=== PATIENT | male | born 1955 | race American Indian/Alaskan Native ===

== ENCOUNTER 2017-11-08 21:21 | Emergency (ER) | payer BC ==
[2017-11-08 22:40] VITALS: RESP 17; O2SAT 96
--- NOTE | 2017-11-08 23:31 | ED PDOC ---
Arrival/HPI - General Chief Complaint: Back Pain Time Seen by Provider: 11/08/17 23:28 Historian: Patient - History of Present Illness Narrative History of Present Illness (Text): 11/08/17 23:31 Shorty Sandhu is a 62 year old male, whose past medical history includes hypertension, who presents to the Emergency department complaining of right- sided neck pain since this morning. Patient states he regularly wears a CPAP mask to sleep for sleep apnea and states he may have "slept wrong." Patient now complaining of right-sided neck pain/muscle spasms.No hx. of any trauma. Patient denies any back pain, headache, dizziness, weakness/numbness/tingling in the extremities, or any other complaints Time/Duration: Other (this morning) Symptom Onset: Gradual Symptom Course: Unchanged Activities at Onset: Sleeping Context: Home Past Medical History - Provider Review Nursing Documentation Reviewed: Yes - Infectious Disease Hx of Infectious Diseases: None - Cardiac Hx Cardiac Disorders: Yes Hx Hypertension: Yes - Pulmonary Hx Respiratory Disorders: No - Neurological Hx Neurological Disorder: No - HEENT Hx HEENT Disorder: No - Renal Hx Renal Disorder: No - Endocrine/Metabolic Hx Endocrine Disorders: No - Hematological/Oncological Hx Blood Disorders: No - Integumentary Hx Dermatological Disorder: No - Musculoskeletal/Rheumatological Hx Musculoskeletal Disorders: Yes Other/Comment: B/L Knee replacements - Gastrointestinal Hx Gastrointestinal Disorders: No - Genitourinary/Gynecological Hx Genitourinary Disorders: No - Psychiatric Hx Psychophysiologic Disorder: No Hx Substance Use: No - Surgical History Hx Joint Replacement: Yes - Anesthesia Hx Anesthesia: Yes Hx Anesthesia Reactions: No Hx Malignant Hyperthermia: No - Suicidal Assessment Feels Threatened In Home Enviroment: No Family/Social History - Physician Review Nursing Documentation Reviewed: Yes Family/Social History: Unknown Family HX Smoking Status: Never Smoked Hx Alcohol Use: No Hx Substance Use: No Allergies/Home Meds Allergies/Adverse Reactions: Allergies No Known Allergies Allergy (Verified 11/08/17 22:39) Home Medications: Home Meds Medication Instructions Recorded Confirmed Norvasc 10 mg PO DAILY 01/10/14 11/08/17 Gabapentin [Neurontin] 300 mg PO BID 11/08/17 11/08/17 Valsartan [Diovan] 320 mg PO DAILY 11/08/17 11/08/17 hydrALAZINE [hydralazine 25 mg PO TID 11/08/17 11/08/17 Hydrochloride] Review of Systems - Physician Review All systems were reviewed & negative as marked: Yes - Review of Systems Constitutional: Normal. absent: Fevers Eyes: Normal ENT: Normal Respiratory: Normal. absent: SOB, Cough Cardiovascular: Normal. absent: Chest Pain Gastrointestinal: Normal. absent: Abdominal Pain, Diarrhea, Nausea, Vomiting Genitourinary Male: Normal. absent: Dysuria, Frequency, Hematuria, Urinary Output Changes Musculoskeletal: Neck Pain. absent: Back Pain Skin: Normal. absent: Rash Neurological: Normal. absent: Headache, Dizziness Endocrine: Normal Hemo/Lymphatic: Normal Psychiatric: Normal Physical Exam Vital Signs Reviewed: Yes Vital Signs Temp Pulse Resp BP Pulse Ox 11/08/17 22:34 98.7 F 59 L 17 197/99 H 96 Temperature: Afebrile Blood Pressure: Hypertensive Pulse: Regular Respiratory Rate: Normal Appearance: Positive for: Well-Appearing, Non-Toxic, Comfortable Pain Distress: None Mental Status: Positive for: Alert and Oriented X 3 - Systems Exam Head: Present: Atraumatic, Normocephalic Pupils: Present: PERRL Extroacular Muscles: Present: EOMI Conjunctiva: Present: Normal Mouth: Present: Moist Mucous Membranes Neck: Present: Paraspinal Tenderness (Paracervical muscle spasms and tenderness on right side). No: Meningeal Signs, MIDLINE TENDERNESS Respiratory/Chest: Present: Clear to Auscultation, Good Air Exchange. No: Respiratory Distress, Accessory Muscle Use Cardiovascular: Present: Regular Rate and Rhythm, Normal S1, S2. No: Murmurs Abdomen: Present: Normal Bowel Sounds. No: Tenderness, Distention, Peritoneal Signs Back: Present: Normal Inspection. No: CVA Tenderness, Midline Tenderness, Paraspinal Tenderness Upper Extremity: Present: Normal Inspection. No: Cyanosis, Edema Lower Extremity: Present: Normal Inspection. No: Edema Neurological: Present: GCS=15, CN II-XII Intact, Speech Normal, Motor Func Grossly Intact, Normal Sensory Function, Normal Cerebellar Funct, Gait Normal, Memory Normal Skin: Present: Warm, Dry, Normal Color. No: Rashes Psychiatric: Present: Alert, Oriented x 3, Normal Insight, Normal Concentration Medical Decision Making ED Course and Treatment: 11/08/17 23:31 Impression: 62 year old male complaining of right-sided neck pain. Differential Diagnosis included but are not limited to: muscle spasm vs. torticollis Plan: -- Percocet -- Valium -- Reassess and disposition Progress Notes: 11/09/17 01:30 On re-evaluation, patient feels better and is in no acute distress. I have discussed the results and plan with the patient, who expresses understanding. Patient in agreement with plan to be discharged home. Patient is stable for discharge. Patient was instructed to follow up with physician or return if symptoms worsen or new concerning symptoms arise. - Medication Orders Current Medication Orders: Discontinued Medications Diazepam (Valium) 5 mg PO ONCE ONE PRN Reason: Protocol Stop: 11/08/17 23:33 Last Admin: 11/08/17 23:59 Dose: 5 mg Diazepam (Valium) 5 mg PO ONCE ONE Stop: 11/09/17 01:32 Oxycodone/Acetaminophen (Percocet 5/325 Mg Tab) 1 tab PO STAT STA Stop: 11/08/17 23:33 Last Admin: 11/08/17 23:59 Dose: 1 tab MAR Pain Assessment Document 11/08/17 23:59 [facility] (Rec: 11/09/17 00:00 R [id number]) Pain Reassessment Is this a pain reassessment? No Sleep Is patient sleeping during reassessment? No Presence of Pain Presence of Pain Yes Pain Scale Used Pain Scale Used Numeric Location Pain Location Body Site Neck Description Description Sharp Intensity of Pain at present 10 Acceptable Level of Pain 0 Pain Behavior Moaning Restlessness Aggravating Factors ADL's Alleviating Factors no relief Oxycodone/Acetaminophen (Percocet 5/325 Mg Tab) 1 tab PO STAT STA Stop: 11/09/17 01:32 - Scribe Statement The provider has reviewed the documentation as recorded by the Moe Madrigal Provider Scribe Attestation: All medical record entries made by the Scribanne were at my direction and personally dictated by me. I have reviewed the chart and agree that the record accurately reflects my personal performance of the history, physical exam, medical decision making, and the department course for this patient. I have also personally directed, reviewed, and agree with the discharge instructions and disposition. Disposition/Present on Arrival - Present on Arrival Any Indicators Present on Arrival: No History of DVT/PE: No History of Uncontrolled Diabetes: No Urinary Catheter: No History of Decub. Ulcer: No History Surgical Site Infection Following: Orthopedic Procedures - Disposition Have Diagnosis and Disposition been Completed?: Yes Diagnosis: Cervical muscle strain, Cervical paraspinal muscle spasm Disposition: HOME/ ROUTINE Disposition Time: :33 Patient Plan: Discharge Patient Problems: Current Active Problems Problem Status Onset Cervical muscle strain Acute Cervical paraspinal muscle spasm Acute Condition: GOOD Discharge Instructions (ExitCare): Cervical Strain (DC), Muscle Spasm (ED) Additional Instructions: Apply warm compresses to the affected area/take meds as prescribed/follow up with your doctor this week Prescriptions: oxyCODONE/Acetaminophen [Percocet 5/325 mg Tab] 1 ea PO Q6 PRN #16 tab PRN Reason: Pain, Moderate (4-7) diaZEpam [Valium] 5 mg PO QID PRN #16 tab PRN Reason: Muscle Spasm Referrals: Carrie Ortega MD [Primary Care Provider] - Follow up with primary Forms: [employer] (Honduran)
[2017-11-08] MEDS ORDERED: Oxycodone/Acetaminophen 5/325 mg Tab PO STA (23:32)
[2017-11-09] MEDS ORDERED: Oxycodone/Acetaminophen 5/325 mg Tab PO STA (01:31)
[2017-11-09 02:09] VITALS: BP 134/71; PULSE 78; TEMP 98.3
== END 2017-11-09 02:10 | disposition home or self-care (01) ==
LOC: ED 21:21
DX: S16.1XXA Strain of muscle, fascia and tendon at neck level, initial encounter (principal); X50.1XXA Overexertion from prolonged static or awkward postures, initial encounter; Y93.89 Activity, other specified; Y92.89 Other specified places as the place of occurrence of the external cause

== ENCOUNTER 2018-05-02 19:24 | Inpatient (IN) | payer BC ==
[2018-05-02 19:42] VITALS: BMI 32.9
[2018-05-02 20:06] LABS: VENOUS BLOOD GAS BASE EXCESS 3.4 mmol/L (0.0-2.0); VENOUS BLOOD GAS PO2 38 mm/Hg (30-55); VENOUS BLOOD PH 7.42 (7.32-7.43)
[2018-05-02 20:12] LABS: BASO # 0.01 K/mm3 (0.0-2.0); BASO % 0.2 % (0.0-3.0); EOS % 0.2 % (1.5-5.0); GRAN # 3.68 (1.4-6.5); GRAN % 76.7 % (50.0-68.0); HEMOGLOBIN 14.5 g/dL (14.0-18.0); LYMPH # 0.7 (1.2-3.4); LYMPH % 14.4 % (22.0-35.0); MEAN CELL VOLUME 93.5 fl (80.0-105.0); MEAN CORPUSCULAR HEMOGLOBIN 32.7 pg (25.0-35.0); MEAN CORPUSCULAR HGB CONC 34.9 g/dl (31.0-37.0); MEAN PLATELET VOLUME 11.1 fl (7.0-11.0); MONO # 0.4 (0.1-0.6); MONO % 8.5 % (1.0-6.0); RBC 4.44 10^6/uL (3.5-6.1); RED CELL DISTRIBUTION WIDTH 12.8 % (11.5-14.5); WHITE BLOOD COUNT 4.8 10^3/ul (4.5-11.0)
[2018-05-02] MEDS: Sodium Chloride 0.9% 1,000 ML IV SCH (20:15)
[2018-05-02 20:20] LABS: ALB/GLOB RATIO 1.2 (1.1-1.8); ALBUMIN 4.3 g/dL (3.0-4.8); ALT/SGPT 31 U/L (7-56); AST/SGOT 29 U/L (17-59); BLOOD UREA NITROGEN 11 mg/dL (7-21); CALCIUM 8.9 mg/dL (8.4-10.5); GFR AFRICAN-AMERICAN > 60; GFR NON-AFRICAN AMERICAN > 60
[2018-05-02 20:25] LABS: INR 1.38 (0.93-1.08); PARTIAL THROMBOPLASTIN TIME 29.2 Seconds (25.1-36.5); PROTHROMBIN TIME 15.8 SECONDS (9.4-12.5)
[2018-05-02 20:27] LABS: PH,URINE 6.5 (4.7-8.0); URINE BILIRUBIN NEGATIVE (NEGATIVE); URINE BLOOD MODERATE (NEGATIVE); URINE GLUCOSE (UA) NEGATIVE (NEGATIVE); URINE LEUKOCYTE ESTERASE LARGE Leu/uL (NEGATIVE); URINE PROTEIN 100 mg/dL (<30 mg/dL); URINE UROBILINOGEN >=8.0 E.U./dL (<1 E.U./dL)
[2018-05-02 20:28] LABS: URINE APPEARANCE SLIGHT-CLOUDY (CLEAR); URINE COLOR YELLOW (YELLOW)
[2018-05-02 20:34] LABS: URINE BACTERIA SMALL (NEG); URINE WBC TNTC /hpf (0-6)
[2018-05-02] MEDS ORDERED: cefTRIAXone 1 gm 1 GM/100 ML BAG IVPB STA (20:47)
--- NOTE | 2018-05-02 21:15 | ED PDOC ---
Arrival/HPI - General Chief Complaint: Flu-like Symptoms Time Seen by Provider: 05/02/18 19:34 Historian: Patient - History of Present Illness Narrative History of Present Illness (Text): 05/02/18 21:11 Shorty Sandhu is a 62 year old male, whose past medical history includes hypertension, who presents to the Emergency department complaining of generalized weakness. Patient states he has been feeling weak and dizzy with associated fever and chills. Patient denies any chest pain, shortness of breath , nausea, vomiting, diarrhea, urinary symptoms, back pain, neck pain, headache, or any other complaints. Symptom Onset: Gradual Symptom Course: Unchanged Activities at Onset: Light Context: Home Past Medical History - Provider Review Nursing Documentation Reviewed: Yes - Infectious Disease Hx of Infectious Diseases: None - Cardiac Hx Cardiac Disorders: Yes Hx Hypertension: Yes - Pulmonary Hx Respiratory Disorders: No - Neurological Hx Neurological Disorder: No - HEENT Hx HEENT Disorder: No - Renal Hx Renal Disorder: No - Endocrine/Metabolic Hx Endocrine Disorders: No - Hematological/Oncological Hx Blood Disorders: No - Integumentary Hx Dermatological Disorder: No - Musculoskeletal/Rheumatological Hx Musculoskeletal Disorders: Yes Other/Comment: B/L Knee replacements - Gastrointestinal Hx Gastrointestinal Disorders: No - Genitourinary/Gynecological Hx Genitourinary Disorders: No Other/Comment: "ED" - Psychiatric Hx Psychophysiologic Disorder: No Hx Substance Use: No - Surgical History Hx Joint Replacement: Yes (B/L TKR) - Anesthesia Hx Anesthesia: Yes Hx Anesthesia Reactions: No Hx Malignant Hyperthermia: No - Suicidal Assessment Feels Threatened In Home Enviroment: No Family/Social History - Physician Review Nursing Documentation Reviewed: Yes Family/Social History: Unknown Family HX Smoking Status: Never Smoked Hx Alcohol Use: No Hx Substance Use: No Allergies/Home Meds Allergies/Adverse Reactions: Allergies No Known Allergies Allergy (Verified 05/02/18 19:42) Home Medications: Home Meds Medication Instructions Recorded Confirmed Norvasc 10 mg PO DAILY 01/10/14 05/02/18 Valsartan [Diovan] 320 mg PO DAILY 11/08/17 05/02/18 hydrALAZINE [hydralazine 25 mg PO TID 11/08/17 05/02/18 Hydrochloride] Review of Systems - Physician Review All systems were reviewed & negative as marked: Yes - Review of Systems Constitutional: Fevers, Other (+chills,+ generalized weakness) Eyes: Normal ENT: Normal Respiratory: Normal. absent: SOB, Cough Cardiovascular: Normal. absent: Chest Pain, Syncope Gastrointestinal: Normal. absent: Abdominal Pain, Diarrhea, Nausea, Vomiting Genitourinary Male: Normal. absent: Dysuria, Frequency, Hematuria, Urinary Output Changes Musculoskeletal: Normal Skin: Normal Neurological: Dizziness. absent: Headache Endocrine: Normal Hemo/Lymphatic: Normal Psychiatric: Normal Physical Exam Vital Signs Reviewed: Yes Vital Signs Temp Pulse Resp BP Pulse Ox 05/03/18 00:09 98.8 F 61 18 142/89 100 05/02/18 22:21 98.8 F 62 18 145/95 H 99 05/02/18 21:27 101.5 F H 05/02/18 21:05 101.5 F H 62 18 100 05/02/18 20:05 103.1 F H 05/02/18 19:42 103.1 F H 78 18 153/102 H 97 Temperature: Febrile Blood Pressure: Normal Pulse: Regular Respiratory Rate: Normal Appearance: Positive for: Well-Appearing, Non-Toxic, Comfortable Pain Distress: None Mental Status: Positive for: Alert and Oriented X 3 - Systems Exam Head: Present: Atraumatic, Normocephalic Pupils: Present: PERRL Extroacular Muscles: Present: EOMI Conjunctiva: Present: Normal Mouth: Present: Moist Mucous Membranes Neck: Present: Normal Range of Motion. No: Meningeal Signs, MIDLINE TENDERNESS , Paraspinal Tenderness Respiratory/Chest: Present: Clear to Auscultation, Good Air Exchange. No: Respiratory Distress, Accessory Muscle Use Cardiovascular: Present: Regular Rate and Rhythm, Normal S1, S2. No: Murmurs Abdomen: No: Tenderness, Distention, Peritoneal Signs Back: Present: Normal Inspection. No: CVA Tenderness, Midline Tenderness, Paraspinal Tenderness Upper Extremity: Present: Normal Inspection. No: Cyanosis, Edema Lower Extremity: Present: Normal Inspection. No: Edema Neurological: Present: GCS=15, CN II-XII Intact, Speech Normal, Motor Func Grossly Intact, Normal Sensory Function, Normal Cerebellar Funct Skin: Present: Warm, Dry, Normal Color. No: Rashes Psychiatric: Present: Alert, Oriented x 3, Normal Insight, Normal Concentration Medical Decision Making ED Course and Treatment: 05/02/18 21:11 Impression: 62 year old male complaining of generalized weakness, dizziness, fever, and chills. Plan: -- CT Abdomen and Pelvis w/o contrast -- EKG -- CXR -- Labs, VBG, blood cultures -- UA, urine cutures -- IV fluids -- Rocephin -- Tylenol -- Reassess and disposition Prior Visits: Notes and results from previous visits were reviewed. On 11/26/2017, pt was seen in the Emergency department for right-sided neck pain. Pt was d/c home. Progress Notes: Reviewed EKG, NSR at 72 bpm. Non-specific T wave changes. 05/02/18 21:56 Reviewed radiology, Chest X-ray shows no acute processes. CT Abdomen and Pelvis shows: Limitations: Limited evaluation due to lack of IV contrast. Lung bases: Unremarkable. No mass. No consolidation. ABDOMEN: Liver: The liver is slightly heterogenous in appearance. Gallbladder and bile ducts: Unremarkable. No calcified stones. No ductal dilation. Pancreas: Pancreas evaluation is limited. No ductal dilation. Spleen: Unremarkable. No splenomegaly. Adrenals: Unremarkable. No mass. Kidneys and ureters: The right kidney is slightly heterogenous in appearance, subcentimeter low density lesions in the right kidney are too small to characterize. Possibly infection is not excluded in the right kidney. Stomach and bowel: Bowel evaluation is limited due to lack of distention. No mucosal thickening. PELVIS: Appendix: No findings to suggest acute appendicitis. Bladder: Unremarkable. No stones. Reproductive: Prostatic calcification. ABDOMEN and PELVIS: Intraperitoneal space: Unremarkable. No free air. No significant fluid collection. Bones/joints: No acute fracture. No dislocation. Soft tissues: Small fat containing umbilical hernia. Vasculature: Unremarkable. No abdominal aortic aneurysm. Lymph nodes: Unremarkable. No enlarged lymph nodes. IMPRESSION: The right kidney is slightly heterogenous in appearance, subcentimeter low density lesions in the right kidney are too small to characterize. Possibly infection is not excluded in the right kidney. 05/02/18 22:[address] Garibay, who is aware and agrees with plan. Accepts pt in to her service. Pt will go to [facility] observation for pyelonephritis. - Lab Interpretations Microbiology Results: Microbiology Results 05/02/18 20:15 Blood Blood Culture - Preliminary NO GROWTH AFTER 24 HOURS 05/02/18 19:20 Blood Blood Culture - Preliminary NO GROWTH AFTER 24 HOURS Lab Results: 05/02/18 19:20 05/02/18 19:20 Lab Results 05/02/18 20:15: Urine Color Yellow, Urine Appearance Slight-cloudy, Urine pH 6.5 , Ur Specific [place] 1.015, Urine Protein 100 H, Urine Glucose (UA) Negative, Urine Ketones Negative, Urine Blood Moderate H, Urine Nitrate Negative, Urine Bilirubin Negative, Urine Urobilinogen >=8.0, Ur Leukocyte Esterase Large H, Urine RBC 5 - 10, Urine WBC Tntc, Ur Epithelial Cells None, Urine Bacteria Small 05/02/18 19:20: Sodium 139, Chloride 99, Potassium 3.7, Carbon Dioxide 28, Anion Gap 16, BUN 11, Creatinine 0.9, Est GFR ( Amer) > 60, Est GFR (Non- Af Amer) > 60, Random Glucose 125 H, Calcium 8.9, Phosphorus 2.2 L, Magnesium 2.1, Total Bilirubin 1.4 H, AST 29, ALT 31, Alkaline Phosphatase 70, Total Protein 7.7, Albumin 4.3, Globulin 3.4, Albumin/Globulin Ratio 1.2 05/02/18 19:20: pO2 38, VBG pH 7.42, VBG pCO2 44.0, VBG HCO3 28.5 H, VBG Total CO2 29.9 H, VBG O2 Sat (Calc) 83.0 H, VBG Base Excess 3.4 H, VBG Potassium 3.7, Sodium 136.0, Chloride 101.0, Glucose 126 H, Lactate 1.3, FiO2 21.0, Venous Blood Potassium 3.7 05/02/18 19:20: PT 15.8 H, INR 1.38 H, APTT 29.2 05/02/18 19:20: WBC 4.8, RBC 4.44, Hgb 14.5, Hct 41.5 L, MCV 93.5, MCH 32.7, MCHC 34.9, RDW 12.8, Plt Count 143, MPV 11.1 H, Gran % 76.7 H, Lymph % (Auto) 14.4 L, [place] % (Auto) 8.5 H, Eos % (Auto) 0.2 L, Baso % (Auto) 0.2, Gran # 3.68 , Lymph # (Auto) 0.7 L, [place] # (Auto) 0.4, Eos # (Auto) 0.0, Baso # (Auto) 0.01 , ESR 10 I have reviewed the lab results: Yes - RAD Interpretation Radiology Orders: 05/02/18 19:55 CHEST TWO VIEWS (PA/LAT) [RAD] Stat 05/02/18 20:47 ABD & PELVIS W/O PO OR IV CONT [CT] Stat [employer]borne Operations Manager: ED Physician, Radiologist - EKG Interpretation Interpreted by ED Physician: Yes Type: 12 lead EKG - Medication Orders Current Medication Orders: Acetaminophen (Tylenol 325mg Tab) 650 mg PO Q4H PRN PRN Reason: Fever >100.5 F Last Admin: 05/04/18 05:30 Dose: 650 mg Amlodipine Besylate (Norvasc) 10 mg PO DAILY [facility] Last Admin: 05/03/18 09:25 Dose: 10 mg MAR Blood Pressure Document 05/03/18 09:25 Y (Rec: 05/03/18 09:25 [id number]) Blood Pressure Blood Pressure (100/60-150/90) 160/100 Hydralazine HCl (Apresoline) 25 mg PO TID [facility] Last Admin: 05/03/18 17:58 Dose: 25 mg MAR Pulse and Blood Pressure Document 05/03/18 17:58 Y (Rec: 05/03/18 17:58 [id number]) Pulse Pulse Rate (60-90) 63 Blood Pressure Blood Pressure (100/60-150/90) 149/97 Hydralazine HCl (Apresoline) 10 mg PO TID PRN PRN Reason: Systolic Blood Pressure Sodium Chloride (Sodium Chloride 0.9%) 1,000 mls @ 150 mls/hr IV .Q6H40M [facility] Last Admin: 05/03/18 09:36 Dose: 150 mls/hr Ceftriaxone Sodium (Rocephin 1 Gram Ivpb) 1 gm in 100 mls @ 100 mls/hr IVPB DAILY [facility] PRN Reason: Protocol Stop: 05/12/18 10:01 Last Admin: 05/03/18 09:25 Dose: 100 mls/hr eMAR Start Stop Document 05/03/18 09:25 Y (Rec: 05/03/18 09:25 [id number]) Intravenous Solution Start Date 05/03/18 Start Time 09:25 End Date 05/03/18 End time 10:25 Total Infusion Time 60 Valsartan (Diovan) 320 mg PO DAILY [facility] Last Admin: 05/03/18 09:25 Dose: 320 mg Discontinued Medications Acetaminophen (Tylenol 325mg Tab) 650 mg PO STAT STA Stop: 05/02/18 20:03 Last Admin: 05/02/18 20:05 Dose: 650 mg MAR Pain/Vitals Document 05/02/18 20:05 AD (Rec: 05/02/18 20:20 AD [id number]) Vitals Temperature (97.6 F-99.6 F) 103.1 F Temperature Source Oral Ceftriaxone Sodium (Rocephin 1 Gram Ivpb) 1 gm in 100 mls @ 200 mls/hr IVPB STAT STA PRN Reason: Protocol Stop: 05/02/18 21:16 Last Admin: 05/02/18 21:24 Dose: 200 mls/hr eMAR Start Stop Document 05/02/18 21:24 AD (Rec: 05/02/18 21:24 AD [id number]) Intravenous Solution Start Date 05/02/18 Start Time 21:24 Sodium Chloride (Sodium Chloride 0.9%) 1,000 mls @ 100 mls/hr IV .Q10H STA Stop: 05/03/18 08:50 Last Admin: 05/02/18 23:51 Dose: 100 mls/hr eMAR Start Stop Document 05/02/18 23:51 AD (Rec: 05/02/18 23:51 AD [id number]) Intravenous Solution Start Date 05/02/18 Start Time 23:51 Ibuprofen (Motrin Tab) 400 mg PO ONCE STA Stop: 05/02/18 21:23 Last Admin: 05/02/18 21:27 Dose: 400 mg MAR Pain/Vitals Document 05/02/18 21:27 AD (Rec: 05/02/18 21:31 AD [id number]) Presence of Pain Presence of Pain Yes Pain Scale Used Pain Scale Used Numeric Location Pain Location Body Tongue Lining Stitcher Description Throbbing Intensity 5 Scale Used Numeric Vitals Temperature (97.6 F-99.6 F) 101.5 F Temperature Source Oral Non-Formulary Medication (Norvasc) 10 mg PO DAILY [facility] - Scribe Statement The provider has reviewed the documentation as recorded by the Scribe Radha Rohan All medical record entries made by the Moe were at my direction and personally dictated by me. I have reviewed the chart and agree that the record accurately reflects my personal performance of the history, physical exam, medical decision making, and the department course for this patient. I have also personally directed, reviewed, and agree with the discharge instructions and disposition. Disposition/Present on Arrival - Present on Arrival Any Indicators Present on Arrival: No History of DVT/PE: No History of Uncontrolled Diabetes: No Urinary Catheter: No History of Decub. Ulcer: No History Surgical Site Infection Following: None - Disposition Have Diagnosis and Disposition been Completed?: Yes Diagnosis: Pyelonephritis Disposition: HOSPITALIZED Disposition Time: 22:50 Condition: FAIR
[2018-05-02] MEDS ORDERED: Sodium Chloride 0.9% 1,000 ML IV STA (22:51)
--- NOTE | 2018-05-03 08:35 | CT ---
PROCEDURE: CT Abdomen and Pelvis without intravenous contrast HISTORY: r/o pyelonephritis COMPARISON: None. TECHNIQUE: Unenhanced study. Neither oral nor intravenous contrast administered. Radiation dose: Total exam DLP = 1019.95 mGy-cm. This CT exam was performed using one or more of the following dose reduction techniques: Automated exposure control, adjustment of the mA and/or kV according to patient size, and/or use of iterative reconstruction technique. FINDINGS: LOWER THORAX: Unremarkable. LIVER: Unremarkable. No gross lesion or ductal dilatation. GALLBLADDER AND BILE DUCTS: Unremarkable. PANCREAS: Unremarkable. No gross lesion or ductal dilatation. SPLEEN: Unremarkable. ADRENALS: Unremarkable. No mass. KIDNEYS AND URETERS: Edematous right kidney. Haziness to the renal fat consistent with acute inflammatory/ infectious process. Left kidney: Unremarkable. No hydronephrosis. No solid mass. VASCULATURE: Unremarkable. No aortic aneurysm. BOWEL: No Diverticulosis without an acute inflammatory component or other associated pathologic process. APPENDIX: Unremarkable. Normal appendix. PERITONEUM: Unremarkable. No free fluid. No free air. LYMPH NODES: Unremarkable. No enlarged lymph nodes. BLADDER: Unremarkable. REPRODUCTIVE: Normal size prostate with intra prostatic calcifications likely the sequela of chronic prostatitis. BONES: No acute fracture. OTHER FINDINGS: None. IMPRESSION: Edematous and heterogeneous right kidney consistent with clinically suspected pyelonephritis. Contrast-enhanced CT would provide a higher degree of sensitivity and specificity clinically indicated. Concordant results (preliminary interpretation) provided by [employer]. Procedure Completed: 21:06 Preliminary ([facility]) Report: Dictated and Authenticated: 21:26. Final Interpretation:
--- NOTE | 2018-05-03 09:06 | CARD ---
APPROVED REPORT EKG Measurement Heart [id number] <Conclusion> Normal sinus rhythm LVH NSSTW changes
--- NOTE | 2018-05-03 09:11 | RAD ---
HISTORY: Trauma/ fall. COMPARISON: No prior. TECHNIQUE: Chest PA and lateral FINDINGS: LUNGS: No active pulmonary disease. PLEURA: No significant pleural effusion identified. No pneumothorax apparent. CARDIOVASCULAR: No radiographic findings to suggest acute or significant cardiovascular disease. OSSEOUS STRUCTURES: No significant abnormalities. VISUALIZED UPPER ABDOMEN: Normal. OTHER FINDINGS: None. IMPRESSION: No active disease.
[2018-05-03] MEDS: cefTRIAXone 1 gm 1 GM/100 ML BAG IVPB SCH (09:25)
[2018-05-03] MEDS: Sodium Chloride 0.9% 1,000 ML IV SCH (09:36)
[2018-05-03] MEDS ORDERED: NORVASC 10 MG PO SCH (10:00)
--- NOTE | 2018-05-03 16:12 | CON ---
DATE: 05/03/2018 LOCATION: The patient is seen this morning in 573, bed 1. CHIEF COMPLAINT: Dizziness times 2 days. HISTORY OF PRESENT ILLNESS: This is a 62-year-old male with a history of hypertension and who was admitted with dizziness associated with fevers and chills. He is also complaining of frequency. No abdominal pain or diarrhea. No constipation. No bright red blood per rectum. No back pain. No headaches or blurred vision. No cough. PAST MEDICAL HISTORY: Significant for hypertension. PAST SURGICAL HISTORY: Significant for bilateral total knee replacement. ALLERGIES: THE PATIENT HAS NO KNOWN ALLERGIES. MEDICATIONS AT HOME: Include valsartan, hydralazine, and Norvasc. PHYSICAL EXAMINATION: GENERAL: The patient is in bed, answering questions appropriately. VITAL SIGNS: Temperature of 101.5, pulse of 62, respiratory rate of 18, blood pressure is 145/95 with 99% saturation on room air with BMI of 32. HEENT: Unremarkable. NECK: Supple. LUNGS: Have decreased breath sounds. HEART: Normal S1, S2. ABDOMEN: Soft, nontender. No organomegaly. No rebound or guarding. No masses. LABORATORY DATA: Reveals a white count of 4.8, hemoglobin of 14, platelets of 143. The patient has 76% granulocytosis, 14% lymphocytosis. Coagulation reveals INR of 1.38. Blood gases are noted. Chemistries reveals the blood glucose of 125. Bilirubin is 1.4. Urinalysis reveals too numerous to count wbc's, large leukocyte esterase, negative nitrites, positive blood, proteinuria, 5-10 wbc's. Review of cultures are pending. The patient's blood cultures from 07/2014 were reported to be negative and the patient had a CAT scan of the abdomen and pelvis, the results are pending. The patient had a chest x-ray, results are pending. The emergency room chart is reviewed. In the emergency room chart, the CAT scan reading is reported as right kidney possibly infected. ASSESSMENT AND PLAN: This is a 62-year-old male with history of hypertension, obesity, admitted with fevers and chills and frequency, found to have positive urinalysis, however, with right pyelonephritis and fever over 101.5. We will treat the patient with ceftriaxone pending blood cultures, urine cultures. Must rule out underlying prostate disease. We will order a prostate-specific antigen. Recommend a Urology consultation for this man with a positive urinary tract infection and right pyelonephritis. Awaiting for CAT scan of the abdomen results and a chest x-ray results. Because of his age, we will also order a HIV test. The patient has been for years and is monogamous with his and we will make further recommendations upon availability of initial results. Nathan Moon MD
--- NOTE | 2018-05-03 18:16 | HP ---
DATE OF EXAM: 05/03/2018 HISTORY OF PRESENT ILLNESS: Mr. Sandhu is a 62-year-old male presented to the ED yesterday with fever, generalized weakness, abdominal pain, back pain, nausea, and vomiting. CAT scan of the abdomen and pelvis showed right-sided renal edema consistent with pyelonephritis. UA was positive in the ED. He has history of hypertension, blood pressure controlled with current medications. History of bilateral knee replacement in the past. No active issues with the knee right now. PAST MEDICAL HISTORY: Hypertension. PAST SURGICAL HISTORY: Knee replacement. PERSONAL HISTORY: Never smoked. No history of alcohol abuse. SOCIAL HISTORY: Lives at home with his . FAMILY HISTORY: Noncontributory. No positive history in mother or father. ALLERGIES: NO KNOWN DRUG ALLERGIES. HOME MEDICATIONS: Norvasc 10 mg daily, Diovan 320 mg daily, hydralazine 25 mg p.o. b.i.d. REVIEW OF SYSTEMS: As per HPI. Rest of 12-point review of systems reviewed negative. PHYSICAL EXAMINATION: VITAL SIGNS: Temperature 101.5, T-max 101.5; blood pressure 150/102; heart rate is 97 per minute; respiratory rate 18 per minute; oxygen saturation 98% on room air. HEENT: Pallor positive. NECK: No lymphadenopathy. CHEST: Air entry present and equal bilaterally. No added sounds. CARDIOVASCULAR: S1 and S2 normal. No murmur. No gallop. ABDOMEN: Soft, nontender. No hepatosplenomegaly. EXTREMITIES: No edema. SKIN: No petechiae. No rash. LABORATORY DATA: White count 4.8, hemoglobin 14.5, hematocrit 41.5, platelet 143. Sodium 139, potassium 3.7, BUN 11, creatinine 0.9, glucose 125. UA positive. Chest x-ray, no infiltrate. ASSESSMENT: 1. Pyelonephritis, right-sided. 2. Fever. 3. Leukocytosis, granulocytosis. PLAN: ID consultation of Dr. Moon requested. He is currently on ceftriaxone 1 g daily, we will continue that. Diovan 320 mg p.o. daily, hydralazine 25 mg p.o. t.i.d., Norvasc 10 mg daily, Tylenol 650 every 4 hours p.r.n., IV fluid at 100 mL an hour. Labs ordered for tomorrow: Blood culture, urine culture, serology HIV requested. Coags normal. Renal functions within normal limits. CBC showed granulocytosis consistent with acute infection. Bilirubin elevated to 1.4. We will repeat in the morning. Juana Garibay MD
[2018-05-04] MEDS: cefTRIAXone 1 gm 1 GM/100 ML BAG IVPB SCH (09:25)
--- NOTE | 2018-05-04 10:21 | CP.PCM.PN ---
<Luiz Parada - Last Filed: 05/04/18 10:30> Subjective - Date & Time of Evaluation Date of Evaluation: 05/04/18 Time of Evaluation: 10:15 - Subjective Subjective: Medicine progress note for Dr. Mix's service - Niya Parada PGY3 Patient seen and examined at bedside this morning. No acute overnight events or new complaints reported. Discussed current plan/treatment. Pending culture/ sensitivity. Urology consulted. Denies chest pain, palpitations, SOB. Objective - Vital Signs/Intake and Output Vital Signs (last 24 hours): Temp Pulse Resp BP Pulse Ox 98.4 F 54 L 20 140/86 100 05/04/18 06:00 05/04/18 06:00 05/04/18 06:00 05/04/18 09:24 05/04/18 06:00 Intake and Output: 05/04/18 05/04/18 06:59 18:59 Intake Total 4740 Output Total 1300 Balance 3440 - Medications Medications: Current Medications Acetaminophen (Tylenol 325mg Tab) 650 mg PO Q4H PRN PRN Reason: Fever >100.5 F Last Admin: 05/04/18 05:30 Dose: 650 mg Amlodipine Besylate (Norvasc) 10 mg PO DAILY [facility] Last Admin: 05/04/18 09:24 Dose: 10 mg Hydralazine HCl (Apresoline) 25 mg PO TID [facility] Last Admin: 05/04/18 09:24 Dose: 25 mg Hydralazine HCl (Apresoline) 10 mg PO TID PRN PRN Reason: Systolic Blood Pressure Sodium Chloride (Sodium Chloride 0.9%) 1,000 mls @ 150 mls/hr IV .Q6H40M [facility] Last Admin: 05/03/18 09:36 Dose: 150 mls/hr Ceftriaxone Sodium (Rocephin 1 Gram Ivpb) 1 gm in 100 mls @ 100 mls/hr IVPB DAILY [facility] PRN Reason: Protocol Stop: 05/12/18 10:01 Last Admin: 05/04/18 09:25 Dose: 100 mls/hr Valsartan (Diovan) 320 mg PO DAILY [facility] Last Admin: 05/04/18 09:24 Dose: 320 mg - Labs Labs: PT 15.8 SECONDS (9.4-12.5) H 05/02/18 19:20 INR 1.38 (0.93-1.08) H 05/02/18 19:20 APTT 29.2 Seconds (25.1-36.5) 05/02/18 19:20 - Constitutional Appears: No Acute Distress - Head Exam Head Exam: ATRAUMATIC, NORMAL INSPECTION, NORMOCEPHALIC - Eye Exam Eye Exam: EOMI, PERRL - ENT Exam ENT Exam: Mucous Membranes Moist - Neck Exam Neck Exam: Normal Inspection - Respiratory Exam Respiratory Exam: Clear to Ausculation Bilateral. absent: Rales, Rhonchi, Wheezes - Cardiovascular Exam Cardiovascular Exam: RRR, +S1, +S2. absent: Clicks, JVD, Rubs - GI/Abdominal Exam GI & Abdominal Exam: Soft, Normal Bowel Sounds. absent: Distended, Firm, Guarding, Rigid, Tenderness, Rebound - Extremities Exam Extremities Exam: Normal Inspection. absent: Pedal Edema - Neurological Exam Neurological Exam: Alert, Awake, CN II-XII Intact, Oriented x3 - Psychiatric Exam Psychiatric exam: Normal Affect, Normal Mood - Skin Skin Exam: Dry, Intact, Normal Color, Warm Assessment and Plan - Assessment and Plan (Free Text) Plan: 62yo male with history of hypertension present with fever, chills and back pain secondary to right-sided acute pyelonephritis 1. Right pyelonephritis 2. Hypertension -We will continue with rocephin for antibiotic coverage at this time pending culture/sensitivity results -Urine culture is growing gram negative rods however awaiting specific microorganism and sensitivity -Case discussed with urology and they will evaluate the patient -ID has been consulted for their assistance - Dr. Moon -He is on valsartan, norvasc and hydralazine for his history of hypertension -We will supplement his potassium with neutra-phos Patient seen and case discussed/reviewed with attending, Dr. Mix <Marco Mix - Last Filed: 05/05/18 18:33> Objective - Vital Signs/Intake and Output Vital Signs (last 24 hours): Temp Pulse Resp BP Pulse Ox 98.5 F 54 L 20 151/84 H 100 05/05/18 06:00 05/05/18 09:33 05/05/18 06:00 05/05/18 09:36 05/05/18 06:00 Intake and Output: 05/05/18 05/05/18 06:59 18:59 Intake Total 3600 480 Output Total 2150 300 Balance 1450 180 - Labs Labs: 05/05/18 06:00 05/05/18 06:00 PT 15.8 SECONDS (9.4-12.5) H 05/02/18 19:20 INR 1.38 (0.93-1.08) H 05/02/18 19:20 APTT 29.2 Seconds (25.1-36.5) 05/02/18 19:20 Assessment and Plan - Assessment and Plan (Free Text) Plan: Pt seen and examined yesterday. This is a late entry. I have reviewed the note of the medical clerk and agree with it. I have discussed the assessment and plan with the resident. I have reviewed the patient's labs and medications. Pt with +UCx pending. He has improvement of his symptoms. He was seen by Urology.
[2018-05-04] MEDS: Potassium & Sodium Phosphate PO SCH (13:27)
--- NOTE | 2018-05-04 16:02 | PCM.URO ---
Urology Progress Note - Objective Lab Studies: Reviewed (gu plans ; as listed no major work up thanks full note to be dictated) Lab Results Last 24 Hours: Laboratory Results - last 24 hr 05/03/18 09:20 HIV 1&2 Ag/Ab, 4th Gen Nonreactive Intake & Output: Intake & Output 05/03/18 05/04/18 05/04/18 18:59 06:59 18:59 Intake Total 4740 Output Total 1300 Balance 3440 Intake: IV 3600 Left Wrist 3600 Oral 1140 Output: Urine 1300 Urine, Voided 1300 Other: # Bowel Movements 1 Vital Signs: Vital Signs - 24 hr 05/03/18 05/03/18 05/03/18 17:58 21:01 21:46 Temperature 101.1 F H 111 F H Pulse Rate 63 65 Respiratory 20 Rate Blood Pressure 149/97 H 167/94 H O2 Sat by Pulse 100 Oximetry 05/03/18 05/04/18 05/04/18 22:57 06:00 09:24 Temperature 99.1 F 98.4 F Pulse Rate 54 L Respiratory 20 Rate Blood Pressure 150/90 141/91 H 140/86 O2 Sat by Pulse 100 Oximetry 05/04/18 13:28 Temperature Pulse Rate Respiratory Rate Blood Pressure 138/82 O2 Sat by Pulse Oximetry
--- NOTE | 2018-05-04 21:01 | CP.PCM.PN ---
Subjective - Date & Time of Evaluation Date of Evaluation: 05/04/18 Time of Evaluation: 10:35 - Subjective Subjective: Flank pain is better, no more fevers, no nausea, no diarrhea. Objective - Vital Signs/Intake and Output Vital Signs (last 24 hours): Temp Pulse Resp BP Pulse Ox 98.2 F 55 L 16 150/80 99 05/04/18 14:00 05/04/18 14:00 05/04/18 14:00 05/04/18 17:10 05/04/18 14:00 - Medications Medications: Current Medications Acetaminophen (Tylenol 325mg Tab) 650 mg PO Q4H PRN PRN Reason: Fever >100.5 F Last Admin: 05/04/18 20:55 Dose: 650 mg Amlodipine Besylate (Norvasc) 10 mg PO DAILY [facility] Last Admin: 05/04/18 09:24 Dose: 10 mg Hydralazine HCl (Apresoline) 25 mg PO TID [facility] Last Admin: 05/04/18 17:10 Dose: 25 mg Hydralazine HCl (Apresoline) 10 mg PO TID PRN PRN Reason: Systolic Blood Pressure Sodium Chloride (Sodium Chloride 0.9%) 1,000 mls @ 150 mls/hr IV .Q6H40M [facility] Last Admin: 05/03/18 09:36 Dose: 150 mls/hr Ceftriaxone Sodium (Rocephin 1 Gram Ivpb) 1 gm in 100 mls @ 100 mls/hr IVPB DAILY [facility] PRN Reason: Protocol Stop: 05/12/18 10:01 Last Admin: 05/04/18 09:25 Dose: 100 mls/hr Potassium Phos/Sodium Phos (Neutra-Phos) 1 pkt PO DAILY [facility] Last Admin: 05/04/18 13:27 Dose: 1 pkt Valsartan (Diovan) 320 mg PO DAILY [facility] Last Admin: 05/04/18 09:24 Dose: 320 mg - Labs Labs: PT 15.8 SECONDS (9.4-12.5) H 05/02/18 19:20 INR 1.38 (0.93-1.08) H 05/02/18 19:20 APTT 29.2 Seconds (25.1-36.5) 05/02/18 19:20 - Constitutional Appears: Chronically Ill - Head Exam Head Exam: NORMAL INSPECTION - ENT Exam ENT Exam: Mucous Membranes Moist - Neck Exam Neck Exam: absent: Meningismus - Respiratory Exam Respiratory Exam: Decreased Breath Sounds - Cardiovascular Exam Cardiovascular Exam: +S1, +S2 - GI/Abdominal Exam GI & Abdominal Exam: Soft. absent: Tenderness Assessment and Plan - Assessment and Plan (Free Text) Plan: Assessment sepsis due to right sided pyelonephritis, with gram negative bacilli in the urine, clinically improving HTN bilateral total knee replacement Plan Continue Rocephin pending identification and sensitivities of the gram negative bacilli in the urine will continue to monitor clinically follow up further plans of Urology
[2018-05-05 06:58] LABS: BASO # 0.01 K/mm3 (0.0-2.0); BASO % 0.3 % (0.0-3.0); EOS # 0.2 (0.0-0.7); EOS % 7.8 % (1.5-5.0); GRAN # 1.26 (1.4-6.5); GRAN % 41.1 % (50.0-68.0); HEMOGLOBIN 13.2 g/dL (14.0-18.0); LYMPH % 32.2 % (22.0-35.0); MEAN CELL VOLUME 93.1 fl (80.0-105.0); MEAN CORPUSCULAR HEMOGLOBIN 31.4 pg (25.0-35.0); MEAN CORPUSCULAR HGB CONC 33.8 g/dl (31.0-37.0); MEAN PLATELET VOLUME 10.7 fl (7.0-11.0); MONO # 0.6 (0.1-0.6); MONO % 18.6 % (1.0-6.0); RBC 4.2 10^6/uL (3.5-6.1); RED CELL DISTRIBUTION WIDTH 12.6 % (11.5-14.5); WHITE BLOOD COUNT 3.1 10^3/ul (4.5-11.0)
[2018-05-05 07:11] LABS: ALB/GLOB RATIO 1.2 (1.1-1.8); ALBUMIN 3.5 g/dL (3.0-4.8); ALT/SGPT 32 U/L (7-56); AST/SGOT 32 U/L (17-59); BLOOD UREA NITROGEN 4 mg/dL (7-21); CALCIUM 8.5 mg/dL (8.4-10.5); GFR AFRICAN-AMERICAN > 60; GFR NON-AFRICAN AMERICAN > 60
[2018-05-05 08:40] VITALS: BP 151/84; RESP 20; TEMP 98.5; O2SAT 100
--- NOTE | 2018-05-05 09:01 | CP.PCM.DIS ---
<Luiz Parada - Last Filed: 05/05/18 14:24> Provider - Provider Date of Admission: 05/02/18 23:00 Attending physician: Marco Mix MD Primary care physician: Farrah Hilario MD Consults: Urology - Dr. Francois ID - Dr. Moon Time Spent in preparation of Discharge (in minutes): 30 Hospital Course - Lab Results Lab Results: Most Recent Lab Values WBC 3.1 10^3/ul (4.5-11.0) L D 05/05/18 06:00 RBC 4.20 10^6/uL (3.5-6.1) 05/05/18 06:00 Hgb 13.2 g/dL (14.0-18.0) L 05/05/18 06:00 Hct 39.1 % (42.0-52.0) L 05/05/18 06:00 MCV 93.1 fl (80.0-105.0) 05/05/18 06:00 MCH 31.4 pg (25.0-35.0) 05/05/18 06:00 MCHC 33.8 g/dl (31.0-37.0) 05/05/18 06:00 RDW 12.6 % (11.5-14.5) 05/05/18 06:00 Plt Count 150 10^3/uL (120.0-450.0) 05/05/18 06:00 MPV 10.7 fl (7.0-11.0) 05/05/18 06:00 Gran % 41.1 % (50.0-68.0) L 05/05/18 06:00 Lymph % (Auto) 32.2 % (22.0-35.0) 05/05/18 06:00 [place] % (Auto) 18.6 % (1.0-6.0) H 05/05/18 06:00 Eos % (Auto) 7.8 % (1.5-5.0) H 05/05/18 06:00 Baso % (Auto) 0.3 % (0.0-3.0) 05/05/18 06:00 Gran # 1.26 (1.4-6.5) L 05/05/18 06:00 Lymph # (Auto) 1.0 (1.2-3.4) L 05/05/18 06:00 [place] # (Auto) 0.6 (0.1-0.6) 05/05/18 06:00 Eos # (Auto) 0.2 (0.0-0.7) 05/05/18 06:00 Baso # (Auto) 0.01 K/mm3 (0.0-2.0) 05/05/18 06:00 ESR 10 mm/hr (0.00-15.0) 05/02/18 19:20 PT 15.8 SECONDS (9.4-12.5) H 05/02/18 19:20 INR 1.38 (0.93-1.08) H 05/02/18 19:20 APTT 29.2 Seconds (25.1-36.5) 05/02/18 19:20 pO2 38 mm/Hg (30-55) 05/02/18 19:20 VBG pH 7.42 (7.32-7.43) 05/02/18 19:20 VBG pCO2 44.0 (40-60) 05/02/18 19:20 VBG HCO3 28.5 mmol/l (21-28) H 05/02/18 19:20 VBG Total CO2 29.9 mmol.L (22-28) H 05/02/18 19:20 VBG O2 Sat (Calc) 83.0 % (40-65) H 05/02/18 19:20 VBG Base Excess 3.4 mmol/L (0.0-2.0) H 05/02/18 19:20 VBG Potassium 3.7 mmol/L (3.6-5.2) 05/02/18 19:20 Sodium 136.0 mmol/L (132-148) 05/02/18 19:20 Chloride 101.0 mmol/L (98-107) 05/02/18 19:20 Glucose 126 mg/dl (75-110) H 05/02/18 19:20 Lactate 1.3 mmol/L (0.7-2.1) 05/02/18 19:20 FiO2 21.0 % 05/02/18 19:20 Sodium 144 mmol/L (132-148) 05/05/18 06:00 Potassium 4.1 mmol/L (3.6-5.0) 05/05/18 06:00 Chloride 104 mmol/L (98-107) 05/05/18 06:00 Carbon Dioxide 32 mmol/L (21-33) 05/05/18 06:00 Anion Gap 12 (10-20) 05/05/18 06:00 BUN 4 mg/dL (7-21) L 05/05/18 06:00 Creatinine 0.7 mg/dl (0.8-1.5) L 05/05/18 06:00 Est GFR ( Amer) > 60 05/05/18 06:00 Est GFR (Non-Af Amer) > 60 05/05/18 06:00 Random Glucose 108 mg/dL (70-110) 05/05/18 06:00 Calcium 8.5 mg/dL (8.4-10.5) 05/05/18 06:00 Phosphorus 2.8 mg/dL (2.5-4.5) 05/05/18 06:00 Magnesium 2.3 mg/dL (1.7-2.2) H 05/05/18 06:00 Total Bilirubin 0.6 mg/dL (0.2-1.3) 05/05/18 06:00 AST 32 U/L (17-59) 05/05/18 06:00 ALT 32 U/L (7-56) 05/05/18 06:00 Alkaline Phosphatase 58 U/L (38-126) 05/05/18 06:00 Total Protein 6.4 g/dL (5.8-8.3) 05/05/18 06:00 Albumin 3.5 g/dL (3.0-4.8) 05/05/18 06:00 Globulin 3.0 gm/dL 05/05/18 06:00 Albumin/Globulin Ratio 1.2 (1.1-1.8) 05/05/18 06:00 Prostate Specific Ag 2.6 ng/mL (0.00-2.5) H 05/03/18 09:20 Venous Blood Potassium 3.7 mmol/L (3.6-5.2) 05/02/18 19:20 Urine Color Yellow (YELLOW) 05/02/18 20:15 Urine Appearance Slight-cloudy (CLEAR) 05/02/18 20:15 Urine pH 6.5 (4.7-8.0) 05/02/18 20:15 Ur Specific [place] 1.015 (1.005-1.035) 05/02/18 20:15 Urine Protein 100 mg/dL (<30 mg/dL) H 05/02/18 20:15 Urine Glucose (UA) Negative mg/dL (NEGATIVE) 05/02/18 20:15 Urine Ketones Negative mg/dL (NEGATIVE) 05/02/18 20:15 Urine Blood Moderate (NEGATIVE) H 05/02/18 20:15 Urine Nitrate Negative (NEGATIVE) 05/02/18 20:15 Urine Bilirubin Negative (NEGATIVE) 05/02/18 20:15 Urine Urobilinogen >=8.0 E.U./dL (<1 E.U./dL) 05/02/18 20:15 Ur Leukocyte Esterase Large Indira/uL (NEGATIVE) H 05/02/18 20:15 Urine RBC 5 - 10 /hpf (0-2) 05/02/18 20:15 Urine WBC Tntc /hpf (0-6) 05/02/18 20:15 Ur Epithelial Cells None /hpf (0-5) 05/02/18 20:15 Urine Bacteria Small (NEG) 05/02/18 20:15 HIV 1&2 Ag/Ab, 4th Gen Nonreactive (Nonreactive) 05/03/18 09:20 - Hospital Course Hospital Course: 62yo male with history of hypertension [facility] with c/o of fever, chills and back pain. On arrival, his EKG revealed normal sinus rhythm with nonspecific ST-T wave changes. CXR was negative for active disease. His UA was positive. A CT abd/pelvis revealed right-sided pyelonephritis. He was admitted and started on IV ceftriaxone. ID and urology were consulted. Urine culture grew schwartz-sensitive E.Coli. He was evaluated by urology and recommended to follow up as an outpatient upon discharge. He was subsequently discharged on oral vantin and instructed to follow up with his primary doctor and urologist. He was agreeable to the instructions provided and subsequently discharged home. Discharge Exam - Head Exam Head Exam: ATRAUMATIC, NORMAL INSPECTION, NORMOCEPHALIC - Eye Exam Eye Exam: EOMI, Normal appearance - Respiratory Exam Respiratory Exam: Clear to PA & Lateral. absent: Rales, Rhonchi, Wheezes - Cardiovascular Exam Cardiovascular Exam: RRR, +S1, +S2. absent: Clicks, Gallop, JVD, Rubs - GI/Abdominal Exam GI & Abdominal Exam: Soft. absent: Distended, Firm, Guarding, Rebound, Rigid, Tenderness - Extremities Exam Extremities exam: normal inspection - Neurological Exam Neurological exam: Alert, CN II-XII Intact, Oriented x3 - Psychiatric Exam Psychiatric exam: Normal Affect, Normal Mood - Skin Skin Exam: Dry, Intact, Normal Color, Warm Discharge Plan - Discharge Medications Prescriptions: Cefpodoxime [Vantin] 200 mg PO BID #20 tab - Follow Up Plan Condition: FAIR Disposition: HOME/ ROUTINE Instructions: Heart Healthy Diet, Urinary Tract Infection in Men (DC), Dysuria (GEN) Additional Instructions: 1. Follow up with your PMD within 1 week. 2. Follow up with your urologist, Dr. Francois within 1 week. 3. Follow up with your orthopedic surgeon within 1 week. 4. Fill the medication prescribed to you and take as directed. 5. Return to the emergency room should your condition worsen or change in severity. Referrals: Farrah Hilario MD [Primary Care Provider] - Handy Rivas DO [Staff Provider] - <Marco Mix - Last Filed: 05/05/18 19:31> Provider - Provider Date of Admission: 05/02/18 23:00 Attending physician: Marco Mix MD Primary care physician: Farrah Hilario MD Hospital Course - Lab Results Lab Results: Most Recent Lab Values WBC 3.1 10^3/ul (4.5-11.0) L D 05/05/18 06:00 RBC 4.20 10^6/uL (3.5-6.1) 05/05/18 06:00 Hgb 13.2 g/dL (14.0-18.0) L 05/05/18 06:00 Hct 39.1 % (42.0-52.0) L 05/05/18 06:00 MCV 93.1 fl (80.0-105.0) 05/05/18 06:00 MCH 31.4 pg (25.0-35.0) 05/05/18 06:00 MCHC 33.8 g/dl (31.0-37.0) 05/05/18 06:00 RDW 12.6 % (11.5-14.5) 05/05/18 06:00 Plt Count 150 10^3/uL (120.0-450.0) 05/05/18 06:00 MPV 10.7 fl (7.0-11.0) 05/05/18 06:00 Gran % 41.1 % (50.0-68.0) L 05/05/18 06:00 Lymph % (Auto) 32.2 % (22.0-35.0) 05/05/18 06:00 [place] % (Auto) 18.6 % (1.0-6.0) H 05/05/18 06:00 Eos % (Auto) 7.8 % (1.5-5.0) H 05/05/18 06:00 Baso % (Auto) 0.3 % (0.0-3.0) 05/05/18 06:00 Gran # 1.26 (1.4-6.5) L 05/05/18 06:00 Lymph # (Auto) 1.0 (1.2-3.4) L 05/05/18 06:00 [place] # (Auto) 0.6 (0.1-0.6) 05/05/18 06:00 Eos # (Auto) 0.2 (0.0-0.7) 05/05/18 06:00 Baso # (Auto) 0.01 K/mm3 (0.0-2.0) 05/05/18 06:00 ESR 10 mm/hr (0.00-15.0) 05/02/18 19:20 PT 15.8 SECONDS (9.4-12.5) H 05/02/18 19:20 INR 1.38 (0.93-1.08) H 05/02/18 19:20 APTT 29.2 Seconds (25.1-36.5) 05/02/18 19:20 pO2 38 mm/Hg (30-55) 05/02/18 19:20 VBG pH 7.42 (7.32-7.43) 05/02/18 19:20 VBG pCO2 44.0 (40-60) 05/02/18 19:20 VBG HCO3 28.5 mmol/l (21-28) H 05/02/18 19:20 VBG Total CO2 29.9 mmol.L (22-28) H 05/02/18 19:20 VBG O2 Sat (Calc) 83.0 % (40-65) H 05/02/18 19:20 VBG Base Excess 3.4 mmol/L (0.0-2.0) H 05/02/18 19:20 VBG Potassium 3.7 mmol/L (3.6-5.2) 05/02/18 19:20 Sodium 136.0 mmol/L (132-148) 05/02/18 19:20 Chloride 101.0 mmol/L (98-107) 05/02/18 19:20 Glucose 126 mg/dl (75-110) H 05/02/18 19:20 Lactate 1.3 mmol/L (0.7-2.1) 05/02/18 19:20 FiO2 21.0 % 05/02/18 19:20 Sodium 144 mmol/L (132-148) 05/05/18 06:00 Potassium 4.1 mmol/L (3.6-5.0) 05/05/18 06:00 Chloride 104 mmol/L (98-107) 05/05/18 06:00 Carbon Dioxide 32 mmol/L (21-33) 05/05/18 06:00 Anion Gap 12 (10-20) 05/05/18 06:00 BUN 4 mg/dL (7-21) L 05/05/18 06:00 Creatinine 0.7 mg/dl (0.8-1.5) L 05/05/18 06:00 Est GFR ( Amer) > 60 05/05/18 06:00 Est GFR (Non-Af Amer) > 60 05/05/18 06:00 Random Glucose 108 mg/dL (70-110) 05/05/18 06:00 Calcium 8.5 mg/dL (8.4-10.5) 05/05/18 06:00 Phosphorus 2.8 mg/dL (2.5-4.5) 05/05/18 06:00 Magnesium 2.3 mg/dL (1.7-2.2) H 05/05/18 06:00 Total Bilirubin 0.6 mg/dL (0.2-1.3) 05/05/18 06:00 AST 32 U/L (17-59) 05/05/18 06:00 ALT 32 U/L (7-56) 05/05/18 06:00 Alkaline Phosphatase 58 U/L (38-126) 05/05/18 06:00 Total Protein 6.4 g/dL (5.8-8.3) 05/05/18 06:00 Albumin 3.5 g/dL (3.0-4.8) 05/05/18 06:00 Globulin 3.0 gm/dL 05/05/18 06:00 Albumin/Globulin Ratio 1.2 (1.1-1.8) 05/05/18 06:00 Prostate Specific Ag 2.6 ng/mL (0.00-2.5) H 05/03/18 09:20 Venous Blood Potassium 3.7 mmol/L (3.6-5.2) 05/02/18 19:20 Urine Color Yellow (YELLOW) 05/02/18 20:15 Urine Appearance Slight-cloudy (CLEAR) 05/02/18 20:15 Urine pH 6.5 (4.7-8.0) 05/02/18 20:15 Ur Specific [place] 1.015 (1.005-1.035) 05/02/18 20:15 Urine Protein 100 mg/dL (<30 mg/dL) H 05/02/18 20:15 Urine Glucose (UA) Negative mg/dL (NEGATIVE) 05/02/18 20:15 Urine Ketones Negative mg/dL (NEGATIVE) 05/02/18 20:15 Urine Blood Moderate (NEGATIVE) H 05/02/18 20:15 Urine Nitrate Negative (NEGATIVE) 05/02/18 20:15 Urine Bilirubin Negative (NEGATIVE) 05/02/18 20:15 Urine Urobilinogen >=8.0 E.U./dL (<1 E.U./dL) 05/02/18 20:15 Ur Leukocyte Esterase Large Indira/uL (NEGATIVE) H 05/02/18 20:15 Urine RBC 5 - 10 /hpf (0-2) 05/02/18 20:15 Urine WBC Tntc /hpf (0-6) 05/02/18 20:15 Ur Epithelial Cells None /hpf (0-5) 05/02/18 20:15 Urine Bacteria Small (NEG) 05/02/18 20:15 HIV 1&2 Ag/Ab, 4th Gen Nonreactive (Nonreactive) 05/03/18 09:20 - Hospital Course Hospital Course: Pt seen and examined. I have reviewed the note of the emergency medical technician basic and agree with it. I have discussed the assessment and plan with the resident. I have reviewed the patient's labs and medications. Pt with UTI. Will switch to PO Abx. F/U Dr Hilario. He has E Coli that is sensitive.
[2018-05-05] MEDS: Potassium & Sodium Phosphate PO SCH (09:33)
[2018-05-05] MEDS: Sodium Chloride 0.9% 1,000 ML IV SCH (09:35)
[2018-05-05] MEDS: cefTRIAXone 1 gm 1 GM/100 ML BAG IVPB SCH (09:36)
[2018-05-05 09:38] VITALS: PULSE 54
--- NOTE | 2018-05-05 16:40 | CP.PCM.PN ---
Subjective - Date & Time of Evaluation Date of Evaluation: 05/05/18 Time of Evaluation: 10:40 - Subjective Subjective: Patient is feeling much better, no fevers, no nausea, no more flank pain. Objective - Vital Signs/Intake and Output Vital Signs (last 24 hours): Temp Pulse Resp BP Pulse Ox 98.5 F 54 L 20 151/84 H 100 05/05/18 06:00 05/05/18 09:33 05/05/18 06:00 05/05/18 09:36 05/05/18 06:00 Intake and Output: 05/05/18 05/05/18 06:59 18:59 Intake Total 3600 Output Total 2150 Balance 1450 - Medications Medications: Current Medications Acetaminophen (Tylenol 325mg Tab) 650 mg PO Q4H PRN PRN Reason: Fever >100.5 F Last Admin: 05/05/18 06:33 Dose: 650 mg Amlodipine Besylate (Norvasc) 10 mg PO DAILY [facility] Last Admin: 05/05/18 09:36 Dose: 10 mg Hydralazine HCl (Apresoline) 25 mg PO TID [facility] Last Admin: 05/05/18 09:33 Dose: 25 mg Hydralazine HCl (Apresoline) 10 mg PO TID PRN PRN Reason: Systolic Blood Pressure Sodium Chloride (Sodium Chloride 0.9%) 1,000 mls @ 150 mls/hr IV .Q6H40M [facility] Last Admin: 05/05/18 09:35 Dose: Not Given Ceftriaxone Sodium (Rocephin 1 Gram Ivpb) 1 gm in 100 mls @ 100 mls/hr IVPB DAILY [facility] PRN Reason: Protocol Stop: 05/12/18 10:01 Last Admin: 05/05/18 09:36 Dose: 100 mls/hr Potassium Phos/Sodium Phos (Neutra-Phos) 1 pkt PO DAILY [facility] Last Admin: 05/05/18 09:33 Dose: 1 pkt Valsartan (Diovan) 320 mg PO DAILY [facility] Last Admin: 05/05/18 09:33 Dose: 320 mg - Labs Labs: 05/05/18 06:00 05/05/18 06:00 PT 15.8 SECONDS (9.4-12.5) H 05/02/18 19:20 INR 1.38 (0.93-1.08) H 05/02/18 19:20 APTT 29.2 Seconds (25.1-36.5) 05/02/18 19:20 - Constitutional Appears: Non-toxic, Chronically Ill - Head Exam Head Exam: NORMAL INSPECTION - Respiratory Exam Respiratory Exam: Decreased Breath Sounds - Cardiovascular Exam Cardiovascular Exam: +S1, +S2 - GI/Abdominal Exam GI & Abdominal Exam: Soft. absent: Tenderness Assessment and Plan - Assessment and Plan (Free Text) Plan: Assessment sepsis due to right sided pyelonephritis, with E. coli in the urine, clinically improving HTN bilateral total knee replacement Plan can switch to PO Vantin or Levaquin to complete the 10-14 day course
--- NOTE | 2018-05-06 05:44 | CON ---
DATE: 05/05/2018 LOCATION: Room 573, bed 1. HISTORY OF PRESENT ILLNESS: This is a 62-year-old male who complains of pain in his left thigh with paresthesias and burning pain, characteristic of paresthesias. He had successful replacement of both knees, right one first and the left one about a year ago and they are both doing very well. No signs of infection or problems with the total knees, good range of motion. He does have a history of carrying his keys in his back pocket on the left side for a while. In the last couple of months, he has been having paresthesia to the left lateral thigh, which is sensory nerve distribution for irritation of the sciatic nerve from probably the pressure of the keys in his back pocket when he sits down, so I told him to stop using the keys in his back pocket and this should subside. If it does not, we need a workup like MRI of his back to see if he has stenosis or herniated disk, but otherwise he could go home and just ambulate as much as possible and to stop irritating the nerve with the keys in the back pocket. If it does not get better, he will need an MRI of his lumbar spine. FINAL DIAGNOSIS: Superficial paresthesia of the left thigh from irritation of the sensory nerve around his left hip. Handy Rivas DO
== END 2018-05-05 11:51 | disposition home or self-care (01) | DRG 690 ==
LOC: ED 19:24 → ERH 22:50 → OBSVTOIN 23:00 → ERH 23:40 → 5RSO 05-03 00:13 → OBSVTOIN 05-04 10:25 → INTOOBSV 05-04 10:25
PROVIDERS: ADMIT Internal Medicine Nephrology; ATTEND Internal Medicine Nephrology
DX: N12 Tubulo-interstitial nephritis, not specified as acute or chronic (principal); B96.20 Unspecified Escherichia coli [E. coli] as the cause of diseases classified elsewhere; I10 Essential (primary) hypertension; Z96.653 Presence of artificial knee joint, bilateral; G57.82 Other specified mononeuropathies of left lower limb; E66.9 Obesity, unspecified; Z68.32 Body mass index [BMI] 32.0-32.9, adult